=== PATIENT | male | born 1985 ===

== ENCOUNTER 2021-06-30 06:56 | Emergency (ER) | payer OTHER ==
[~2021-06-30] VITALS: Ht 162.6 cm; Wt 81.6 kg
[2021-06-30] MEDS ORDERED: ONDANSETRON HCL 4 MG/2 ML VIAL IV ONE (08:00)
[2021-06-30] MEDS ORDERED: SODIUM CHLORIDE 0.9% 1,000 ML IV ONE ×2 (08:00→09:15)
[2021-06-30] MEDS ORDERED: FAMOTIDINE (10MG/ML) 2ML VL IV ONE (08:00)
[2021-06-30 08:46] LABS: Basophils # (auto) 0.1 10 ^3/uL (0-0.2); Basophils % (auto) 0.7 % (0.0-2.0); Eosinophils # (auto) 0 10 ^3/uL (0-0.8); Eosinophils % (auto) 0.2 % (0.0-7.0); Hematocrit 46.1 % (41.0-53.0); Hemoglobin 16.1 g/dL (13.5-17.5); Lymphocytes # (auto) 1.3 10 ^3/uL (0.4-5.4); Lymphocytes % (auto) 14.6 % (10.0-50.0); Mean Corpuscular Hemoglobin 30.2 pg (28.0-32.0); Mean Corpuscular Volume 86.3 fL (80.0-100.0); Monocytes # (auto) 0.9 10 ^3/uL (0-1.3); Monocytes % (auto) 10.6 % (0.0-12.0); Neutrophils # (auto) 6.4 10 ^3/uL (1.6-8.6); Neutrophils % (auto) 73.9 % (37.0-80.0); Nucleated Red Blood Cells % 0.2 %; Red Blood Cells 5.34 10^6/uL (4.5-5.90); Red Cell Distribution Width 13.4 % (11.8-14.3); White Blood Cell 8.6 10^3/uL (4.4-10.8)
[2021-06-30] MEDS ORDERED: cefTRIAXone 1GM/50ML D5W 50 ML IV ONE (09:00)
[2021-06-30 09:11] LABS: BUN/Creatinine Ratio 10.2; Bilirubin, Total 0.9 mg/dL (0.2-1.0); Total Protein 8.6 g/dL (6.4-8.2)
[2021-06-30 09:24] LABS: Potassium 3.9 mmol/L (3.5-5.1)
[2021-06-30 10:12] LABS: Alcohol, Urine < 3.0 mg/dL (0-10); Barbiturate Scree,Urine NEGATIVE (NEGATIVE); Benzodiazephine Screen, Urine NEGATIVE (NEGATIVE); Cannabinoid Screen, Urine POSITIVE (NEGATIVE); Cocaine Screen, Urine NEGATIVE (NEGATIVE); Opiate Scree,Urine NEGATIVE (NEGATIVE); Phencyclidine Screen, Urine NEGATIVE (NEGATIVE)
[2021-06-30] MEDS ORDERED: MORPHINE SULFATE INJECTION 2 MG/ML SYRG IV ONE (10:15)
[2021-06-30 10:19] LABS: Amphetamine Screen, Urine NEGATIVE (NEGATIVE)
[2021-06-30 10:37] VITALS: BP 139/94
== END 2021-06-30 10:42 | disposition home or self-care (01) ==
LOC: ER 06:56
DX: K52.9 Noninfective gastroenteritis and colitis, unspecified (principal); K29.80 Duodenitis without bleeding; Z88.5 Allergy status to narcotic agent
CPT/HCPCS: 36415; 71046; 74176; 80053; 80307; 83690; 85025; 96361; 96365; 96375; 99285; J0696; J2270; J2405; J3490; J7030